=== PATIENT | female | born 1960 | race Caucasian/White ===

== ENCOUNTER 2018-11-08 08:35 | Inpatient (IN) | payer BC ==
[~2018-11-08 08:35] MED LIST: Acetaminophen 325 MG Tab PO SCH; Bisacodyl 5 MG Tab PO PRN; Lactated Ringers 1,000 ML IV SCH; Lidocaine 1%/Sod Bicarbonate in NS 8.4% 1 ML Syringe IDERM PRN; Morphine 2 MG/ML Syringe IVPUSH PRN; Naloxone 0.4 MG/ML SDV IVPUSH PRN; Ondansetron 4 MG/2 ML SDV IVPUSH PRN; Pregabalin 25 MG Cap PO SCH; Sodium Chloride 0.9% 10 ML Syringe FLUSH PRN; oxyCODONE ER 10 MG TAB.ER PO SCH
[2018-11-08] MEDS ORDERED: ceFAZolin 1 GM Vial ONE (08:56)
--- NOTE | 2018-11-08 08:56 | PCM.PREANE ---
Preanesthetic Assessment - Anesthesia/Transfusion/Family Hx Anesthesia History: Prior Anesthesia Without Reaction Family History of Anesthesia Reaction: No Transfusion History: No Prior Transfusion(s) - Review of Systems General: No Symptoms Pulmonary: No Symptoms Cardiovascular: Dyspnea on Exertion Gastrointestinal: No Symptoms Neurological: Tingling (fingers at time) Other: Reports: Diabetes - Physical Assessment NPO Status Date: 11/07/18 NPO Status Time: 00:00 Pulse: 77 ASA Class: 2 Mental Status: Alert & Oriented x3 Dentition: Reports: Partial, Hardin(s) Thyro-Mental Finger Breadths: 3 Mouth Opening Finger Breadths: 3 ROM/Head Extension: Full Lungs: Clear to Auscultation, Normal Respiratory Effort Cardiovascular: Regular Rate, Regular Rhythm - Lab Values: on chart - Imaging/EKG Impressions: on chart SR - Allergies Allergies/Adverse Reactions: Allergies Allergy/AdvReac Type Severity Reaction Status Date / Time No Known Allergies Allergy Verified 11/05/18 14:44 - Anesthesia Plan Pre-Op Medication Ordered: None - Acknowledgements Anesthesia Type Planned: Spinal, Regional Block (left adductor canal block for pos-op pain control) Pt an Appropriate Candidate for the Planned Anesthesia: Yes Alternatives and Risks of Anesthesia Discussed w Pt/Guardian: Yes Pt/Guardian Understands and Agrees with Anesthesia Plan: Yes PreAnesthesia Questionnaire HEENT History: Reports: Impaired Vision, Other (See Below) Other HEENT History: wears glasses, has partial Cardiovascular History: Reports: High Cholesterol Respiratory History: Reports: None Gastrointestinal History: Reports: None Genitourinary History: Reports: None 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 Musculoskeletal History: Reports: Osteoarthritis Neurological History: Reports: None Psychiatric History: Reports: None Endocrine/Metabolic History: Reports: Diabetes, Type II, Hypothyroidism Hematologic History: Reports: None Immunologic History: Reports: None Oncologic (Cancer) History: Reports: None Dermatologic History: Reports: None - Past Surgical History Head Surgeries/Procedures: Reports: None Cardiovascular Surgical History: Reports: None Respiratory Surgical History: Reports: None GI Surgical History: Reports: Cholecystectomy Female Surgical History: Reports: None Male Surgical History: Reports: None Endocrine Surgical History: Reports: None Neurological Surgical History: Reports: None Musculoskeletal Surgical History: Reports: Shoulder Surgery, Other (See Below) Other Musculoskeletal Surgeries/Procedures:: knee arthroscopy, decompression of medial nerve Oncologic Surgical History: Reports: None Dermatological Surgical History: Reports: None - SUBSTANCE USE Smoking Status *Q: Former Smoker Second Hand Smoke Exposure: No Recreational Drug Use History: No - HOME MEDS Home Medications: Home Meds Acetaminophen/Diphenhydramine [Tylenol Pm Ex-Strength Caplet] 2 tab PO BEDTIME PRN 11/05/18 [History] Aspirin [Halfprin] 81 mg PO DAILY 11/05/18 [History] Ca Carbonate/Vitamin D3/Vit K [Calcium + D Soft Chewable Tab] 1 tab PO DAILY [History] Cholecalciferol (Vitamin D3) [Vitamin D3] 5,000 unit PO DAILY 11/05/18 [History] Fish Oil/[place]-3 Fatty Acids [Fish Oil 1,000 MG] 1 gm PO BID 11/05/18 [History] Levothyroxine 150 mcg PO DAILY 11/05/18 [History] Multivitamin [Daily Multiple Vitamin] 1 tab PO DAILY 11/05/18 [History] Simvastatin [Zocor] 40 mg PO DAILY 11/05/18 [History] metFORMIN HCl [Metformin HCl ER] 500 mg PO DAILY 11/05/18 [History] - CURRENT (IN HOUSE) MEDS Current Meds: Current Medications Acetaminophen (Tylenol) 975 mg PO ONETIME JOB Stop: 11/08/18 15:00 Aspirin (Ecotrin) 325 mg PO BID JOB Bisacodyl (Dulcolax) 5 mg PO DAILY PRN PRN Reason: Constipation Cyclobenzaprine HCl (Flexeril) 10 mg PO TID PRN PRN Reason: Spasms Docusate Sodium (Colace) 100 mg PO BID JOB Famotidine (Pepcid) 20 mg PO Q12H JOB Lactated Ringer's (Ringers, Lactated) 1,000 mls @ 125 mls/hr IV ASDIRECTED JOB Stop: 11/08/18 23:00 Cefazolin Sodium/Dextrose 2 gm (/ Premix) 50 mls @ 100 mls/hr IV Q8H JOB Stop: 11/08/18 23:59 Ketorolac Tromethamine (Toradol) 15 mg IVPUSH Q6H PRN PRN Reason: Pain Lidocaine/Sodium Bicarbonate (Buffered Lidocaine 1% In Ns 8.4%) 0.25 ml IDERM ONETIME PRN PRN Reason: Prior to IV Start Stop: 11/08/18 18:00 Magnesium Hydroxide (Milk Of Magnesia) 30 ml PO BID PRN PRN Reason: Constipation Morphine Sulfate (Morphine) 2 mg IVPUSH Q2H PRN PRN Reason: Breakthrough Pain Naloxone HCl (Narcan) 0.1 mg IVPUSH Q5M PRN PRN Reason: Oversedation Ondansetron HCl (Zofran) 4 mg IVPUSH Q6H PRN PRN Reason: Nausea/Vomiting Oxycodone HCl (Oxycontin) 10 mg PO ONETIME JOB Stop: 11/08/18 15:00 Oxycodone/Acetaminophen (Percocet 325-5 Mg) 1 - 2 tab PO Q4H PRN PRN Reason: Pain Pregabalin (Lyrica) 50 mg PO ONETIME JOB Stop: 11/08/18 15:00 Senna (Senna) 8.6 mg PO BID PRN PRN Reason: Constipation Sodium Chloride (Saline Flush) 10 ml FLUSH ASDIRECTED PRN PRN Reason: Keep Vein Open Stop: 11/08/18 18:00 Discontinued Medications Morphine Sulfate 8 mg/Epinephrine HCl 0.3 mg/Cefuroxime Sodium 750 mg/Ketorolac Tromethamine 30 mg/Sodium Chloride 27.9 ml 0 mg .XX ONETIME ONE Stop: 11/08/18 07:22
[2018-11-08] MEDS ORDERED: Propofol 200 MG/20 ML SDV ONE ×3 (09:06→11:03)
[2018-11-08] MEDS ORDERED: fentaNYL 100 MCG/2 ML SDV ONE (09:06)
[2018-11-08] MEDS ORDERED: Ondansetron 4 MG/2 ML SDV ONE (09:06)
[2018-11-08] MEDS ORDERED: Midazolam 1 MG/ML 2 ML SDV ONE (09:07)
[2018-11-08] MEDS ORDERED: Ropivacaine 0.5% 5 MG/ML 30 ML SDV ONE (10:06)
[2018-11-08] MEDS ORDERED: EPINEPHrine 1 MG/ML SDV ONE (10:06)
[2018-11-08] MEDS ORDERED: ePHEDrine/Normal Saline 25 MG/5 ML Syringe ONE (10:15)
[2018-11-08] MEDS: Bupivacaine 0.25% 10 ML SDV ONE ×2 (10:46→11:20)
[2018-11-08] MEDS: Bupivacaine 0.25% 30 ML SDV ONE ×2 (10:47→11:05)
[2018-11-08] MEDS: ceFAZolin 1 GM Vial ONE ×2 (10:47→10:59)
[2018-11-08] MEDS: Morphine 8 MG, EPINEPHrine 0.3 MG, Cefuroxime 750 MG, Ketorolac 30 MG, Sodium Chloride ... ONE ×10 (10:48→11:04)
[2018-11-08] MEDS: Iodine/Sodium Iodide 2% Tincture 30 ML Bottle ONE ×2 (10:48→10:57)
[2018-11-08] MEDS: Triamcinolone Acetonide 40 MG/ML 1 ML MDV ONE ×2 (10:49→11:20)
[2018-11-08] MEDS: Vancomycin 1 GM SDV ONE ×2 (10:50→11:06)
[2018-11-08] MEDS ORDERED: diphenhydrAMINE 50 MG/ML SDV IVPUSH PRN (10:51)
[2018-11-08] MEDS ORDERED: Ondansetron 4 MG/2 ML SDV IVPUSH PRN (10:51)
--- NOTE | 2018-11-08 11:34 | PCM.OPNOTE ---
- General Post-Op/Procedure Note Date of Surgery/Procedure: 11/08/18 Operative Procedure(s): left total knee with right knee corticosteroid injection Pre Op Diagnosis: bilateral knee osteoarthritis Post-Op Diagnosis: Same Anesthesia Technique: Local, MAC, Spinal Primary Surgeon: Salas Lincoln Anesthesia Provider: Amina Turpin Warper Fixer: Tiffanie Tatum Warper Fixer: Cesia Nicolas Complications: None Condition: Good Free Text/Narrative:: size 4/4 9mm 32x10
--- NOTE | 2018-11-08 11:43 | PCM.POSTAN ---
POST ANESTHESIA ASSESSMENT - MENTAL STATUS Mental Status: Alert, Oriented - VITAL SIGNS Pulse Rate: 80 SaO2: 97 Resp Rate: 12 Blood Pressure: 102/65 Temperature: 97.1 C - RESPIRATORY Respiratory Status: Respiratory Rate WNL, Airway Patent, O2 Saturation Stable - CARDIOVASCULAR CV Status: Pulse Rate WNL, Blood Pressure Stable - PAIN Pain Score: 0 - POST OP HYDRATION Hydration Status: Adequate & Stable
--- NOTE | 2018-11-08 12:11 | PCM.SN ---
- Free Text/Narrative Note: Left selective femoral nerve block at the adductor canal for post-operative pain control Time Out: 1141 Start: 1141 End: 1200 Chart reviewed. Consent signed. Questions answered. Appropriate monitors applied. Time out performed. Left mid-shaft femur identified via ultrasound. Scanning medially of left femur, identification of the femoral artery, femoral vein, and nerve bundles noted within the adductor canal. The skin was prepped lateral to the ultrasound probe with chlorahexadine times two. The 21ga 4 insulated block needle was inserted under direct ultrasound guidance into the adductor canal. 25mL of 0.5% ropivacaine with 1:200,000 epinephrine was injected cirmcumferentially around the nerve with intermittent negative aspiration noted every 5mLs. Procedure performed under aseptic technique with sterile probe cover, sterile gloves, and mask noted. Patient tolerated the procedure well. See pictures on progress note and vital signs on nurses notes. Block completed postoperatively. Vince Crump CRNA
--- NOTE | 2018-11-08 12:39 | CR ---
Left knee: AP and lateral views of the left knee were obtained. Comparison: No prior knee exam. Knee prosthesis is seen. Components are aligned. Soft tissue air is noted from the surgical procedure. Impression: 1. Satisfactory postoperative radiographic appearance of recently placed left knee prosthesis. Diagnostic code #2
[2018-11-08] MEDS: Acetaminophen/oxyCODONE 325-5 MG Tab PO PRN ×2 (14:34→18:44)
[2018-11-08] MEDS ORDERED: Cyclobenzaprine 10 MG Tab PO PRN (15:00)
--- NOTE | 2018-11-08 16:36 | PCM.CONS ---
H&P History of Present Illness - General Date of Service: 11/08/18 Admit Problem/Dx: Admission Diagnosis/Problem Admission Diagnosis/Problem Osteoarthritis of knee Source of Information: Patient, Old Records, Provider, RN, RN Notes Reviewed History Limitations: Reports: No Limitations - History of Present Illness Initial Comments - Free Text/Narative: Nallely Rose is a 57 yo female patient of Dr. Lincoln who is post-operative day 0 of left TKA and right knee cortisone injection. Hospital medicine was consulted for post-operative medical care of the following listed medical conditions. At this time she is resting comfortably in bed Pain is controlled. She denies any chest pain, shortness of breath, palpitations, nausea, or vomiting. She carries a history of: Impaired vision, HLD, Osteoarthritis, Type II DM, Hypothyroidism. . She is a full code. Her primary care provider is Eden Fung PA-C. Left Knee Pain Score (Numeric/FACES): 4 - Related Data Allergies/Adverse Reactions: Allergies Allergy/AdvReac Type Severity Reaction Status Date / Time No Known Allergies Allergy Verified 11/08/18 13:00 Home Medications: Home Meds Acetaminophen/Diphenhydramine [Tylenol Pm Ex-Strength Caplet] 2 tab PO BEDTIME PRN 11/05/18 [History] Aspirin [Halfprin] 81 mg PO DAILY 11/05/18 [History] Ca Carbonate/Vitamin D3/Vit K [Calcium + D Soft Chewable Tab] 1 tab PO DAILY [History] Cholecalciferol (Vitamin D3) [Vitamin D3] 5,000 unit PO DAILY 11/05/18 [History] Fish Oil/[place]-3 Fatty Acids [Fish Oil 1,000 MG] 1 gm PO BID 11/05/18 [History] Levothyroxine 150 mcg PO DAILY 11/05/18 [History] Multivitamin [Daily Multiple Vitamin] 1 tab PO DAILY 11/05/18 [History] Simvastatin [Zocor] 40 mg PO DAILY 11/05/18 [History] metFORMIN HCl [Metformin HCl ER] 500 mg PO DAILY 11/05/18 [History] Past Medical History HEENT History: Reports: Impaired Vision, Other (See Below) Other HEENT History: wears glasses, has partial Cardiovascular History: Reports: High Cholesterol Respiratory History: Reports: None Gastrointestinal History: Reports: None Genitourinary History: Reports: None 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 Musculoskeletal History: Reports: Osteoarthritis Neurological History: Reports: None Psychiatric History: Reports: None Endocrine/Metabolic History: Reports: Diabetes, Type II, Hypothyroidism Hematologic History: Reports: None Immunologic History: Reports: None Oncologic (Cancer) History: Reports: None Dermatologic History: Reports: None - Infectious Disease History Infectious Disease History: Reports: None - Past Surgical History Head Surgeries/Procedures: Reports: None Cardiovascular Surgical History: Reports: None Respiratory Surgical History: Reports: None GI Surgical History: Reports: Cholecystectomy Female Surgical History: Reports: None Male Surgical History: Reports: None Endocrine Surgical History: Reports: None Neurological Surgical History: Reports: None Musculoskeletal Surgical History: Reports: Shoulder Surgery, Other (See Below) Other Musculoskeletal Surgeries/Procedures:: knee arthroscopy, decompression of medial nerve Oncologic Surgical History: Reports: None Dermatological Surgical History: Reports: None Social & Family History - Family History Family Medical History: Noncontributory - Tobacco Use Smoking Status *Q: Former Smoker Years of Tobacco use: 40 Used Tobacco, but Quit: Yes Month/Year Tobacco Last Used: May 2016 Second Hand Smoke Exposure: No - Caffeine Use Caffeine Use: Reports: Coffee Other Caffeine Use: 1 pot of coffee a day. - Recreational Drug Use Recreational Drug Use: No H&P Review of Systems - Review of Systems: Review Of Systems: See Below General: Reports: No Symptoms. Denies: Fever, Chills HEENT: Reports: No Symptoms. Denies: Headaches, Sore Throat Pulmonary: Reports: No Symptoms. Denies: Shortness of Breath, Wheezing, Pleuritic Chest Pain, Cough, Sputum Cardiovascular: Reports: No Symptoms. Denies: Chest Pain, Palpitations, Dyspnea on Exertion Gastrointestinal: Reports: No Symptoms. Denies: Abdominal Pain, Constipation, Diarrhea, Nausea, Vomiting Genitourinary: Reports: No Symptoms. Denies: Pain Musculoskeletal: Reports: Leg Pain Skin: Reports: No Symptoms Psychiatric: Reports: No Symptoms. Denies: Confusion Neurological: Reports: No Symptoms. Denies: Pre-Existing Deficit Hematologic/Lymphatic: Reports: No Symptoms Immunologic: Reports: No Symptoms Exam - Exam Exam: See Below - Vital Signs Vital Signs: Last Vital Signs Temp 97.2 F 11/08/18 12:15 Pulse 55 L 11/08/18 11:45 Resp 13 11/08/18 12:15 BP 129/82 11/08/18 12:15 Pulse Ox 98 11/08/18 12:15 Weight: 176 lb - Exam Quality Assessment: DVT Prophylaxis. No: Supplemental Oxygen, Urinary Catheter General: Alert, Oriented, Cooperative. No: Mild Distress HEENT: Conjunctiva Clear, EACs Clear, EOMI, Hearing Intact, Mucosa Moist & [place] , Nares Patent, Posterior Pharynx Clear, PERRLA Neck: Supple, Trachea Midline Lungs: Clear to Auscultation, Normal Respiratory Effort Cardiovascular: Regular Rate, Regular Rhythm GI/Abdominal Exam: Normal Bowel Sounds, Soft, Non-Tender, No Distention, No Abnormal Bruit (Female) Exam: Deferred Rectal (Female) Exam: Deferred Back Exam: Normal Inspection, Full Range of Motion Extremities: No Pedal Edema, Normal Capillary Refill, Leg Pain, Limited Range of Motion, Other (Bandage in place on left leg. Bandage is dry and intact. Cooling pack in place. ) Peripheral Pulses: 2+: Radial (L), Radial (R), Dorsalis Pedis (L), Dorsalis Pedis (R) Skin: Warm, Dry, Intact Neurological: Cranial Nerves Intact (Grossly) Neuro Extensive - Mental Status: Alert, Oriented x3 - Patient Data Lab Results Last 24 hrs: Laboratory Results - last 24 hr 11/08/18 Range/Units 09:05 POC Glucose 117 H (70-105) mg/dL Consult PN Assessment/Plan POD#: 0 (1) S/P total knee arthroplasty SNOMED Code(s): 0654987372908, 642830687, 6622330640861 Code(s): Z96.659 - PRESENCE OF UNSPECIFIED ARTIFICIAL KNEE JOINT Priority: High Current Visit: Yes Qualifiers: Laterality: left Qualified Code(s): Z96.652 - Presence of left artificial knee joint (2) Osteoarthritis SNOMED Code(s): 542593741 Code(s): M19.90 - UNSPECIFIED OSTEOARTHRITIS, UNSPECIFIED SITE Priority: High Current Visit: Yes Qualifiers: Osteoarthritis location: knee Osteoarthritis type: primary Laterality: bilateral Qualified Code(s): M17.0 - Bilateral primary osteoarthritis of knee (3) HLD (hyperlipidemia) SNOMED Code(s): 12212400 Code(s): E78.5 - HYPERLIPIDEMIA, UNSPECIFIED Priority: Low Current Visit : No Qualifiers: Hyperlipidemia type: unspecified Qualified Code(s): E78.5 - Hyperlipidemia , unspecified (4) Type II diabetes mellitus SNOMED Code(s): 72468672 Code(s): E11.9 - TYPE 2 DIABETES MELLITUS WITHOUT COMPLICATIONS Priority: Medium Current Visit: No Qualifiers: Diabetes mellitus long term care pharmacist insulin use: without long term care pharmacist use Diabetes mellitus complication status: without complication Qualified Code(s): E11.9 - Type 2 diabetes mellitus without complications (5) Hypothyroidism SNOMED Code(s): 14272944 Code(s): E03.9 - HYPOTHYROIDISM, UNSPECIFIED Priority: Low Current Visit : No Qualifiers: Hypothyroidism type: unspecified Qualified Code(s): E03.9 - Hypothyroidism , unspecified Problem List Initiated/Reviewed/Updated: Yes Plan: I/P: Acute: S/P left total knee arthroplasty - post-operative day 0 -DVT prophylaxis and pain management per primary care team -PT/OT -IS/RT -Monitor oxygen saturation -Titrate oxygen as needed -Home medications reviewed -Vital signs stable -Monitor labs -Pre-operative Hgb was 13.8 -Pre-operative GFR was 88 Osteoarthritis of bilateral knees -Pain management per primary care team S/P right knee cortisone injection -Management by primary team Chronic: Impaired vision HLD Type II DM Hypothyroidism Plan: CM for discharge planning GI prophylaxis Home medications as indicated Other orders as listed above Routine AM labs She is a full code. Her PCP is Eden Fung PA-C Thank you for allowing us to participate in the care of this patient!! Requesting Provider: Dr. Lincoln Date Consult Requested: 11/08/18 Patient History Reviewed: Yes Admission H&P Reviewed: Yes Time Spent (in minutes): 35
[2018-11-08] MEDS ORDERED: Ketorolac 15 MG/ML SDV IVPUSH PRN (18:00)
[2018-11-08] MEDS: ceFAZolin 2 GM in Premix Bag 1 BAG IV SCH (18:44)
[2018-11-08] MEDS: Insulin Lispro 100 Units/ML 3 ML Vial SUBCUT SCH ×2 (18:45→21:30)
[2018-11-08] MEDS ORDERED: Sennosides 8.6 MG Tab PO PRN (21:00)
[2018-11-08] MEDS ORDERED: Magnesium Hydroxide 400 MG/5 ML Susp 30 ML Cup PO PRN (21:00)
[2018-11-08] MEDS: Famotidine 20 MG Tab PO SCH (21:29)
[2018-11-08] MEDS: Docusate Sodium 100 MG Cap PO SCH (21:29)
[2018-11-09] MEDS: Acetaminophen/oxyCODONE 325-5 MG Tab PO PRN ×3 (00:42→11:22)
[2018-11-09] MEDS: ceFAZolin 2 GM in Premix Bag 1 BAG IV SCH ×2 (01:01→09:33)
[2018-11-09] MEDS ORDERED: Levothyroxine 150 MCG Tab PO SCH (06:00)
[2018-11-09] MEDS: Insulin Lispro 100 Units/ML 3 ML Vial SUBCUT SCH ×2 (06:05→13:03)
--- NOTE | 2018-11-09 08:17 | PCM.SURGPN ---
- General Info Date of Service: 11/09/18 POD#: 1 Functional Status: Reports: Pain Controlled, Tolerating Diet, Ambulating, Urinating, Incentive Spirometry - Review of Systems Musculoskeletal: Reports: Other (The pt has progressed well with therapies.) - Patient Data Vitals - Most Recent: Last Vital Signs Temp 99.1 F 11/09/18 07:33 Pulse 85 11/09/18 07:33 Resp 16 11/09/18 07:33 BP 103/71 11/09/18 07:33 Pulse Ox 94 L 11/09/18 07:33 Weight - Most Recent: 186 lb I&O - Last 24 Hours: Intake & Output 11/08/18 11/09/18 11/09/18 22:59 06:59 14:59 Intake Total 1400 1650 Output Total 200 2200 Balance 1200 -550 Lab Results Last 24 Hrs: Laboratory Results - last 24 hr 11/08/18 11/08/18 11/09/18 Range/Units 09:05 21:28 05:25 WBC 8.02 (3.98-10.04) K/mm3 RBC 3.72 L (3.98-5.22) M/mm3 Hgb 11.0 L (11.2-15.7) gm/L Hct 35.1 (34.1-44.9) % MCV 94.4 (79.4-94.8) fl MCH 29.6 (25.6-32.2) pg MCHC 31.3 L (32.2-35.5) g/dl RDW Std Deviation 48.6 H (36.4-46.3) fL Plt Count 233 (182-369) K/mm3 MPV 10.1 (9.4-12.3) fl Sodium (136-145) mEq/L Potassium (3.5-5.1) mEq/L Chloride (98-107) mEq/L Carbon Dioxide (21-32) mEq/L Anion Gap (5-15) BUN (7-18) mg/dL Creatinine (0.55-1.02) mg/dL Est Cr Clr Drug Dosing mL/min Estimated GFR (MDRD) (>60) mL/min BUN/Creatinine Ratio (14-18) Glucose (74-106) mg/dL POC Glucose 117 H 116 H (70-105) mg/dL Calcium (8.5-10.1) mg/dL Total Bilirubin (0.2-1.0) mg/dL AST (15-37) U/L ALT (14-59) U/L Alkaline Phosphatase (46-116) U/L Total Protein (6.4-8.2) g/dl Albumin (3.4-5.0) g/dl Globulin gm/dL Albumin/Globulin Ratio (1-2) 11/09/18 11/09/18 Range/Units 05:25 06:03 WBC (3.98-10.04) K/mm3 RBC (3.98-5.22) M/mm3 Hgb (11.2-15.7) gm/L Hct (34.1-44.9) % MCV (79.4-94.8) fl MCH (25.6-32.2) pg MCHC (32.2-35.5) g/dl RDW Std Deviation (36.4-46.3) fL Plt Count (182-369) K/mm3 MPV (9.4-12.3) fl Sodium 137 (136-145) mEq/L Potassium 4.6 (3.5-5.1) mEq/L Chloride 103 (98-107) mEq/L Carbon Dioxide 27 (21-32) mEq/L Anion Gap 11.6 (5-15) BUN 18 (7-18) mg/dL Creatinine 1.0 (0.55-1.02) mg/dL Est Cr Clr Drug Dosing 50.73 mL/min Estimated GFR (MDRD) 57 (>60) mL/min BUN/Creatinine Ratio 18.0 (14-18) Glucose 121 H (74-106) mg/dL POC Glucose 125 H (70-105) mg/dL Calcium 8.7 (8.5-10.1) mg/dL Total Bilirubin 0.3 (0.2-1.0) mg/dL AST 24 (15-37) U/L ALT 33 (14-59) U/L Alkaline Phosphatase 77 (46-116) U/L Total Protein 6.6 (6.4-8.2) g/dl Albumin 3.1 L (3.4-5.0) g/dl Globulin 3.5 gm/dL Albumin/Globulin Ratio 0.9 L (1-2) Med Orders - Current: Current Medications Aspirin (Ecotrin) 325 mg PO BID [facility] Bisacodyl (Dulcolax) 5 mg PO DAILY PRN PRN Reason: Constipation Cholecalciferol (Vitamin D3) 5,000 unit PO DAILY [facility] Cyclobenzaprine HCl (Flexeril) 10 mg PO TID PRN PRN Reason: Spasms Docusate Sodium (Colace) 100 mg PO BID [facility] Last Admin: 11/08/18 21:29 Dose: 100 mg Famotidine (Pepcid) 20 mg PO Q12H [facility] Last Admin: 11/08/18 21:29 Dose: 20 mg Cefazolin Sodium/Dextrose 2 gm (/ Premix) 50 mls @ 100 mls/hr IV Q8H [facility] Stop: 11/09/18 10:29 Last Admin: 11/09/18 01:01 Dose: 100 mls/hr Insulin Human Lispro (Humalog) 0 unit SUBCUT QIDACANDBED [facility]; Protocol Last Admin: 11/09/18 06:05 Dose: Not Given Ketorolac Tromethamine (Toradol) 15 mg IVPUSH Q6H PRN PRN Reason: Pain Last Admin: 11/09/18 00:41 Dose: 15 mg Levothyroxine Sodium (Levothyroxine) 150 mcg PO 0600 [facility] Last Admin: 11/09/18 05:59 Dose: 150 mcg Magnesium Hydroxide (Milk Of Magnesia) 30 ml PO BID PRN PRN Reason: Constipation Morphine Sulfate (Morphine) 2 mg IVPUSH Q2H PRN PRN Reason: Breakthrough Pain Multivitamins (Thera) 1 each PO DAILY [facility] Naloxone HCl (Narcan) 0.1 mg IVPUSH Q5M PRN PRN Reason: Oversedation Ondansetron HCl (Zofran) 4 mg IVPUSH Q6H PRN PRN Reason: Nausea/Vomiting Oxycodone/Acetaminophen (Percocet 325-5 Mg) 1 - 2 tab PO Q4H PRN PRN Reason: Pain Last Admin: 11/09/18 05:59 Dose: 2 tab Senna (Senna) 8.6 mg PO BID PRN PRN Reason: Constipation Discontinued Medications Acetaminophen (Tylenol) 975 mg PO ONETIME [facility] Stop: 11/08/18 15:00 Last Admin: 11/08/18 08:52 Dose: 975 mg Bupivacaine HCl (Sensorcaine-Mpf 0.25%) Confirm Administered Dose 10 ml .ROUTE .STK-MED ONE Stop: 11/08/18 08:57 Last Admin: 11/08/18 10:46 Dose: 4 ml Bupivacaine HCl (Marcaine 0.25%) Confirm Administered Dose 30 ml .ROUTE .STK- MED ONE Stop: 11/08/18 08:57 Last Admin: 11/08/18 10:47 Dose: 30 ml Cefazolin Sodium (Ancef) Confirm Administered Dose 2 gm .ROUTE .STK-MED ONE Stop: 11/08/18 08:57 Cefazolin Sodium (Ancef) Confirm Administered Dose 2 gm .ROUTE .STK-MED ONE Stop: 11/08/18 09:08 Last Admin: 11/08/18 10:47 Dose: 2 gm Morphine Sulfate 8 mg/Epinephrine HCl 0.3 mg/Cefuroxime Sodium 750 mg/Ketorolac Tromethamine 30 mg/Sodium Chloride 27.9 ml 0 mg .XX ONETIME ONE Stop: 11/08/18 07:22 Last Admin: 11/08/18 10:48 Dose: 788.3 mg Diphenhydramine HCl (Benadryl) 25 mg IVPUSH Q6H PRN PRN Reason: pruritis Stop: 11/08/18 20:00 Ephedrine Sulfate (Ephedrine In Ns) Confirm Administered Dose 25 mg .ROUTE .STK- MED ONE Stop: 11/08/18 10:16 Epinephrine HCl (Adrenalin) Confirm Administered Dose 1 mg .ROUTE .STK-MED ONE Stop: 11/08/18 10:07 Fentanyl (Sublimaze) Confirm Administered Dose 100 mcg .ROUTE .STK-MED ONE Stop: 11/08/18 09:07 Lactated Ringer's (Ringers, Lactated) 1,000 mls @ 125 mls/hr IV ASDIRECTED [facility] Stop: 11/08/18 23:00 Last Admin: 11/08/18 09:10 Dose: 125 mls/hr Iodine (Iodine 2% Mild Tincture) Confirm Administered Dose 30 ml .ROUTE .STK- MED ONE Stop: 11/08/18 08:57 Last Admin: 11/08/18 10:48 Dose: 18 ml Lidocaine/Sodium Bicarbonate (Buffered Lidocaine 1% In Ns 8.4%) 0.25 ml IDERM ONETIME PRN PRN Reason: Prior to IV Start Stop: 11/08/18 18:00 Last Admin: 11/08/18 09:10 Dose: 0.25 ml Metformin HCl (Glucophage) 250 mg PO BID [facility] Midazolam HCl (Versed 1 Mg/Ml) Confirm Administered Dose 2 mg .ROUTE .STK-MED ONE Stop: 11/08/18 09:08 Ondansetron HCl (Zofran) Confirm Administered Dose 4 mg .ROUTE .STK-MED ONE Stop: 11/08/18 09:07 Ondansetron HCl (Zofran) 4 mg IVPUSH ONETIME PRN PRN Reason: Nausea/Vomiting Stop: 11/08/18 20:00 Oxycodone HCl (Oxycontin) 10 mg PO ONETIME [facility] Stop: 11/08/18 15:00 Last Admin: 11/08/18 08:51 Dose: 10 mg Pregabalin (Lyrica) 50 mg PO ONETIME [facility] Stop: 11/08/18 15:00 Last Admin: 11/08/18 08:51 Dose: 50 mg Propofol (Diprivan 20 Ml) Confirm Administered Dose 200 mg .ROUTE .STK-MED ONE Stop: 11/08/18 09:07 Propofol (Diprivan 20 Ml) Confirm Administered Dose 200 mg .ROUTE .STK-MED ONE Stop: 11/08/18 10:23 Propofol (Diprivan 20 Ml) Confirm Administered Dose 200 mg .ROUTE .STK-MED ONE Stop: 11/08/18 11:04 Ropivacaine (Naropin 0.5%) Confirm Administered Dose 30 ml .ROUTE .STK-MED ONE Stop: 11/08/18 10:07 Simvastatin (Zocor) 40 mg PO DAILY [facility] Sodium Chloride (Saline Flush) 10 ml FLUSH ASDIRECTED PRN PRN Reason: Keep Vein Open Stop: 11/08/18 18:00 Tranexamic Acid (Cyklokapron) Confirm Administered Dose 1,000 mg .ROUTE .STK- MED ONE Stop: 11/08/18 08:57 Last Admin: 11/08/18 10:49 Dose: 1,000 mg Triamcinolone Acetonide (Kenalog-40) Confirm Administered Dose 80 mg .ROUTE .STK -MED ONE Stop: 11/08/18 08:57 Last Admin: 11/08/18 10:49 Dose: 80 mg Vancomycin HCl (Vancomycin) Confirm Administered Dose 1 gm .ROUTE .STK-MED ONE Stop: 11/08/18 08:57 Last Admin: 11/08/18 10:50 Dose: 1 gm - Exam Wound/Incisions: Dressing Dry and Intact General: Alert, Cooperative, No Acute Distress Lungs: Normal Respiratory Effort Extremities: Other (NVS intact for LLE. Becca's negative.) - Problem List Review Problem List Initiated/Reviewed/Updated: Yes - My Orders Last 24 Hours: Active Orders 24 hr Category Date Time Status Patient Status [ADT] Routine ADT 11/08/18 07:22 Active Antiembolic Devices [RC] Care 11/08/18 07:22 Active Blood Glucose Check, Bedside [RC] QIDACANDBED Care 11/08/18 16:51 Active Notify Provider [RC] Care 11/08/18 10:51 Active RT Incentive Spirometry [RC] Q1HWA Care 11/08/18 07:21 Active Ready for Discharge [RC] PER UNIT ROUTINE Care 11/09/18 08:15 Ordered Vital Signs [RC] Q4HR Care 11/08/18 07:22 Active Consult to Physician [CONS] Routine Cons 11/08/18 07:22 Active OT Evaluation and Treatment [CONS] Routine Cons 11/08/18 07:21 Active PT Evaluation and Treatment [CONS] Routine Cons 11/08/18 07:21 Active [employer] Diet [DIET] Diet 11/08/18 Lunch Active Acetaminophen/oxyCODONE [Percocet 325-5 MG] Med 11/08/18 07:21 Active 1 - 2 tab PO Q4H PRN Aspirin [Ecotrin] Med 11/09/18 09:00 Active 325 mg PO BID Bisacodyl [Dulcolax] Med 11/08/18 07:22 Active 5 mg PO DAILY PRN Cholecalciferol (Vitamin D3) [Vitamin D3] Med 11/09/18 09:00 Active 5,000 unit PO DAILY Cyclobenzaprine [Flexeril] Med 11/08/18 15:00 Active 10 mg PO TID PRN Docusate Sodium [Colace] Med 11/08/18 21:00 Active 100 mg PO BID Famotidine [Pepcid] Med 11/08/18 21:00 Active 20 mg PO Q12H Insulin Lispro [HumaLOG] Med 11/08/18 17:00 Active See Protocol SUBCUT QIDACANDBED Ketorolac [Toradol] Med 11/08/18 18:00 Active 15 mg IVPUSH Q6H PRN Levothyroxine Med 11/09/18 06:00 Active 150 mcg PO 0600 Magnesium Hydroxide [Milk of Magnesia] Med 11/08/18 21:00 Active 30 ml PO BID PRN Morphine Med 11/08/18 07:22 Active 2 mg IVPUSH Q2H PRN Multivitamins,Therapeutic [Thera] Med 11/09/18 09:00 Active 1 each PO DAILY Naloxone [Narcan] Med 11/08/18 07:22 Active 0.1 mg IVPUSH Q5M PRN Ondansetron [Zofran] Med 11/08/18 07:22 Active 4 mg IVPUSH Q6H PRN Sennosides [Senna] Med 11/08/18 21:00 Active 8.6 mg PO BID PRN ceFAZolin [Ancef] 2 gm Med 11/08/18 18:00 Active Premix Bag 1 bag IV Q8H Antiembolic Hose [OM.PC] Per Unit Routine Oth 11/08/18 07:23 Ordered Ice Therapy [OM.PC] Per Unit Routine Oth 11/08/18 07:23 Ordered Sequential Compression Device [OM.PC] Per Unit Routine Oth 11/08/18 07:21 Ordered Resuscitation Status Routine Resus Stat 11/08/18 07:22 Ordered Medication Orders Aspirin (Ecotrin) 325 mg PO BID [facility] Bisacodyl (Dulcolax) 5 mg PO DAILY PRN PRN Reason: Constipation Cholecalciferol (Vitamin D3) 5,000 unit PO DAILY [facility] Cyclobenzaprine HCl (Flexeril) 10 mg PO TID PRN PRN Reason: Spasms Docusate Sodium (Colace) 100 mg PO BID [facility] Last Admin: 11/08/18 21:29 Dose: 100 mg Famotidine (Pepcid) 20 mg PO Q12H [facility] Last Admin: 11/08/18 21:29 Dose: 20 mg Cefazolin Sodium/Dextrose 2 gm (/ Premix) 50 mls @ 100 mls/hr IV Q8H [facility] Stop: 11/09/18 10:29 Last Admin: 11/09/18 01:01 Dose: 100 mls/hr Infusion: 11/08/18 19:14 Dose: 100 mls/hr Admin: 11/08/18 18:44 Dose: 100 mls/hr Insulin Human Lispro (Humalog) 0 unit SUBCUT QIDACANDBED [facility]; Protocol Last Admin: 11/09/18 06:05 Dose: Admin: 11/08/18 21:30 Dose: Admin: 11/08/18 18:45 Dose: Not Given Ketorolac Tromethamine (Toradol) 15 mg IVPUSH Q6H PRN PRN Reason: Pain Last Admin: 11/09/18 00:41 Dose: 15 mg Levothyroxine Sodium (Levothyroxine) 150 mcg PO 0600 [facility] Last Admin: 11/09/18 05:59 Dose: 150 mcg Magnesium Hydroxide (Milk Of Magnesia) 30 ml PO BID PRN PRN Reason: Constipation Morphine Sulfate (Morphine) 2 mg IVPUSH Q2H PRN PRN Reason: Breakthrough Pain Multivitamins (Thera) 1 each PO DAILY [facility] Naloxone HCl (Narcan) 0.1 mg IVPUSH Q5M PRN PRN Reason: Oversedation Ondansetron HCl (Zofran) 4 mg IVPUSH Q6H PRN PRN Reason: Nausea/Vomiting Oxycodone/Acetaminophen (Percocet 325-5 Mg) 1 - 2 tab PO Q4H PRN PRN Reason: Pain Last Admin: 11/09/18 05:59 Dose: 2 tab Admin: 11/09/18 00:42 Dose: 2 tab Admin: 11/08/18 18:44 Dose: 2 tab Admin: 11/08/18 14:34 Dose: 2 tab Senna (Senna) 8.6 mg PO BID PRN PRN Reason: Constipation - Assessment Assessment (Free Text/Narrative):: POD#1 - left TKA with right knee cortisone injection - Plan Plan (Free Text/Narrative):: 1. Hgb 11.0. 2. Discharge to home today. 3. Outpatient therapy. 4. 325mg ASA PO BID, frequent mobility, TEDs. The pt's case was discussed with Dr. Lincoln.
[2018-11-09] MEDS ORDERED: Aspirin 325 MG Tab.EC PO SCH (09:00)
[2018-11-09] MEDS ORDERED: Multivitamins,Therapeutic Tab PO SCH (09:00)
[2018-11-09] MEDS ORDERED: Simvastatin 40 MG Tab PO SCH (09:00)
[2018-11-09] MEDS ORDERED: metFORMIN 500 MG Tab PO SCH (09:00)
[2018-11-09] MEDS ORDERED: Cholecalciferol (Vitamin D3) 5,000 UNIT Tab PO SCH (09:00)
[2018-11-09] MEDS: Docusate Sodium 100 MG Cap PO SCH (09:32)
[2018-11-09] MEDS: Famotidine 20 MG Tab PO SCH (09:32)
--- NOTE | 2018-11-09 10:59 | PCM48HPAN ---
Post Anesthesia Note - EVALUATION WITHIN 48HRS OF ANESTHETIC Vital Signs in Normal Range: Yes Patient Participated in Evaluation: Yes Respiratory Function Stable: Yes Airway Patent: Yes Cardiovascular Function Stable: Yes Hydration Status Stable: Yes Pain Control Satisfactory: Yes Nausea and Vomiting Control Satisfactory: Yes Mental Status Recovered: Yes
--- NOTE | 2018-11-09 15:48 | PCM.CONSN ---
- General Info Date of Service: 11/09/18 Admission Dx/Problem (Free Text): Admission Diagnosis/Problem Admission Diagnosis/Problem Osteoarthritis of knee Subjective Update: Nallely Rose is a 57 yo female patient of Dr. Lincoln who is post-operative day 1 of left TKA and right knee cortisone injection. Hospital medicine was consulted for post-operative medical care of the following listed medical conditions. At this time she is resting comfortably in bed Pain is controlled. She denies any chest pain, shortness of breath, palpitations, nausea, or vomiting. She carries a history of: Impaired vision, HLD, Osteoarthritis, Type II DM, Hypothyroidism. . Patient had an uneventful night. No fever, chills, shortness of breath, chest pain, or dyspnea. She is a full code. Her primary care provider is Eden Fung PA-C. - Review of Systems General: Reports: No Symptoms HEENT: Reports: No Symptoms Pulmonary: Reports: No Symptoms. Denies: Shortness of Breath, Cough Cardiovascular: Reports: No Symptoms. Denies: Chest Pain Gastrointestinal: Reports: No Symptoms Genitourinary: Reports: No Symptoms. Denies: Dysuria Neurological: Reports: No Symptoms - Patient Data Vitals - Most Recent: Last Vital Signs Temp 99.0 F 11/09/18 11:20 Pulse 87 11/09/18 11:20 Resp 16 11/09/18 11:20 BP 121/84 11/09/18 11:20 Pulse Ox 94 L 11/09/18 11:20 Weight - Most Recent: 186 lb I&O - Last 24 Hours: Intake & Output 11/09/18 11/09/18 11/09/18 06:59 14:59 22:59 Intake Total 1650 120 Output Total 2200 Balance -550 120 Lab Results Last 24 Hours: Laboratory Results - last 24 hr 11/08/18 11/09/18 11/09/18 Range/Units 21:28 05:25 05:25 WBC 8.02 (3.98-10.04) K/mm3 RBC 3.72 L (3.98-5.22) M/mm3 Hgb 11.0 L (11.2-15.7) gm/L Hct 35.1 (34.1-44.9) % MCV 94.4 (79.4-94.8) fl MCH 29.6 (25.6-32.2) pg MCHC 31.3 L (32.2-35.5) g/dl RDW Std Deviation 48.6 H (36.4-46.3) fL Plt Count 233 (182-369) K/mm3 MPV 10.1 (9.4-12.3) fl Sodium 137 (136-145) mEq/L Potassium 4.6 (3.5-5.1) mEq/L Chloride 103 (98-107) mEq/L Carbon Dioxide 27 (21-32) mEq/L Anion Gap 11.6 (5-15) BUN 18 (7-18) mg/dL Creatinine 1.0 (0.55-1.02) mg/dL Est Cr Clr Drug Dosing 50.73 mL/min Estimated GFR (MDRD) 57 (>60) mL/min BUN/Creatinine Ratio 18.0 (14-18) Glucose 121 H (74-106) mg/dL POC Glucose 116 H (70-105) mg/dL Calcium 8.7 (8.5-10.1) mg/dL Total Bilirubin 0.3 (0.2-1.0) mg/dL AST 24 (15-37) U/L ALT 33 (14-59) U/L Alkaline Phosphatase 77 (46-116) U/L Total Protein 6.6 (6.4-8.2) g/dl Albumin 3.1 L (3.4-5.0) g/dl Globulin 3.5 gm/dL Albumin/Globulin Ratio 0.9 L (1-2) 11/09/18 11/09/18 Range/Units 06:03 11:27 WBC (3.98-10.04) K/mm3 RBC (3.98-5.22) M/mm3 Hgb (11.2-15.7) gm/L Hct (34.1-44.9) % MCV (79.4-94.8) fl MCH (25.6-32.2) pg MCHC (32.2-35.5) g/dl RDW Std Deviation (36.4-46.3) fL Plt Count (182-369) K/mm3 MPV (9.4-12.3) fl Sodium (136-145) mEq/L Potassium (3.5-5.1) mEq/L Chloride (98-107) mEq/L Carbon Dioxide (21-32) mEq/L Anion Gap (5-15) BUN (7-18) mg/dL Creatinine (0.55-1.02) mg/dL Est Cr Clr Drug Dosing mL/min Estimated GFR (MDRD) (>60) mL/min BUN/Creatinine Ratio (14-18) Glucose (74-106) mg/dL POC Glucose 125 H 107 H (70-105) mg/dL Calcium (8.5-10.1) mg/dL Total Bilirubin (0.2-1.0) mg/dL AST (15-37) U/L ALT (14-59) U/L Alkaline Phosphatase (46-116) U/L Total Protein (6.4-8.2) g/dl Albumin (3.4-5.0) g/dl Globulin gm/dL Albumin/Globulin Ratio (1-2) Med Orders - Current: Current Medications Discontinued Medications Acetaminophen (Tylenol) 975 mg PO ONETIME [facility] Stop: 11/08/18 15:00 Last Admin: 11/08/18 08:52 Dose: 975 mg Aspirin (Ecotrin) 325 mg PO BID [facility] Last Admin: 11/09/18 09:32 Dose: 325 mg Bisacodyl (Dulcolax) 5 mg PO DAILY PRN PRN Reason: Constipation Bupivacaine HCl (Sensorcaine-Mpf 0.25%) Confirm Administered Dose 10 ml .ROUTE .STK-MED ONE Stop: 11/08/18 08:57 Last Admin: 11/08/18 11:20 Dose: 4 ml Bupivacaine HCl (Marcaine 0.25%) Confirm Administered Dose 30 ml .ROUTE .STK- MED ONE Stop: 11/08/18 08:57 Last Admin: 11/08/18 11:05 Dose: 30 ml Cefazolin Sodium (Ancef) Confirm Administered Dose 2 gm .ROUTE .STK-MED ONE Stop: 11/08/18 08:57 Cefazolin Sodium (Ancef) Confirm Administered Dose 2 gm .ROUTE .STK-MED ONE Stop: 11/08/18 09:08 Last Admin: 11/08/18 10:59 Dose: 2 gm Cholecalciferol (Vitamin D3) 5,000 unit PO DAILY [facility] Last Admin: 11/09/18 09:33 Dose: 5,000 unit Morphine Sulfate 8 mg/Epinephrine HCl 0.3 mg/Cefuroxime Sodium 750 mg/Ketorolac Tromethamine 30 mg/Sodium Chloride 27.9 ml 0 mg .XX ONETIME ONE Stop: 11/08/18 07:22 Last Admin: 11/08/18 11:04 Dose: 788.3 mg Cyclobenzaprine HCl (Flexeril) 10 mg PO TID PRN PRN Reason: Spasms Last Admin: 11/09/18 09:31 Dose: 10 mg Diphenhydramine HCl (Benadryl) 25 mg IVPUSH Q6H PRN PRN Reason: pruritis Stop: 11/08/18 20:00 Docusate Sodium (Colace) 100 mg PO BID [facility] Last Admin: 11/09/18 09:32 Dose: 100 mg Ephedrine Sulfate (Ephedrine In Ns) Confirm Administered Dose 25 mg .ROUTE .STK- MED ONE Stop: 11/08/18 10:16 Epinephrine HCl (Adrenalin) Confirm Administered Dose 1 mg .ROUTE .STK-MED ONE Stop: 11/08/18 10:07 Famotidine (Pepcid) 20 mg PO Q12H [facility] Last Admin: 11/09/18 09:32 Dose: 20 mg Fentanyl (Sublimaze) Confirm Administered Dose 100 mcg .ROUTE .STK-MED ONE Stop: 11/08/18 09:07 Lactated Ringer's (Ringers, Lactated) 1,000 mls @ 125 mls/hr IV ASDIRECTED [facility] Stop: 11/08/18 23:00 Last Admin: 11/08/18 09:10 Dose: 125 mls/hr Cefazolin Sodium/Dextrose 2 gm (/ Premix) 50 mls @ 100 mls/hr IV Q8H [facility] Stop: 11/09/18 10:29 Last Admin: 11/09/18 09:33 Dose: 100 mls/hr Insulin Human Lispro (Humalog) 0 unit SUBCUT QIDACANDBED [facility]; Protocol Last Admin: 11/09/18 13:03 Dose: Not Given Iodine (Iodine 2% Mild Tincture) Confirm Administered Dose 30 ml .ROUTE .STK- MED ONE Stop: 11/08/18 08:57 Last Admin: 11/08/18 10:57 Dose: 18 ml Ketorolac Tromethamine (Toradol) 15 mg IVPUSH Q6H PRN PRN Reason: Pain Last Admin: 11/09/18 00:41 Dose: 15 mg Levothyroxine Sodium (Levothyroxine) 150 mcg PO 0600 [facility] Last Admin: 11/09/18 05:59 Dose: 150 mcg Lidocaine/Sodium Bicarbonate (Buffered Lidocaine 1% In Ns 8.4%) 0.25 ml IDERM ONETIME PRN PRN Reason: Prior to IV Start Stop: 11/08/18 18:00 Last Admin: 11/08/18 09:10 Dose: 0.25 ml Magnesium Hydroxide (Milk Of Magnesia) 30 ml PO BID PRN PRN Reason: Constipation Metformin HCl (Glucophage) 250 mg PO BID [facility] Midazolam HCl (Versed 1 Mg/Ml) Confirm Administered Dose 2 mg .ROUTE .STK-MED ONE Stop: 11/08/18 09:08 Morphine Sulfate (Morphine) 2 mg IVPUSH Q2H PRN PRN Reason: Breakthrough Pain Multivitamins (Thera) 1 each PO DAILY [facility] Last Admin: 11/09/18 09:31 Dose: 1 each Naloxone HCl (Narcan) 0.1 mg IVPUSH Q5M PRN PRN Reason: Oversedation Ondansetron HCl (Zofran) 4 mg IVPUSH Q6H PRN PRN Reason: Nausea/Vomiting Ondansetron HCl (Zofran) Confirm Administered Dose 4 mg .ROUTE .STK-MED ONE Stop: 11/08/18 09:07 Ondansetron HCl (Zofran) 4 mg IVPUSH ONETIME PRN PRN Reason: Nausea/Vomiting Stop: 11/08/18 20:00 Oxycodone HCl (Oxycontin) 10 mg PO ONETIME [facility] Stop: 11/08/18 15:00 Last Admin: 11/08/18 08:51 Dose: 10 mg Oxycodone/Acetaminophen (Percocet 325-5 Mg) 1 - 2 tab PO Q4H PRN PRN Reason: Pain Last Admin: 11/09/18 11:22 Dose: 2 tab Pregabalin (Lyrica) 50 mg PO ONETIME [facility] Stop: 11/08/18 15:00 Last Admin: 11/08/18 08:51 Dose: 50 mg Propofol (Diprivan 20 Ml) Confirm Administered Dose 200 mg .ROUTE .STK-MED ONE Stop: 11/08/18 09:07 Propofol (Diprivan 20 Ml) Confirm Administered Dose 200 mg .ROUTE .STK-MED ONE Stop: 11/08/18 10:23 Propofol (Diprivan 20 Ml) Confirm Administered Dose 200 mg .ROUTE .STK-MED ONE Stop: 11/08/18 11:04 Ropivacaine (Naropin 0.5%) Confirm Administered Dose 30 ml .ROUTE .STK-MED ONE Stop: 11/08/18 10:07 Senna (Senna) 8.6 mg PO BID PRN PRN Reason: Constipation Simvastatin (Zocor) 40 mg PO DAILY [facility] Sodium Chloride (Saline Flush) 10 ml FLUSH ASDIRECTED PRN PRN Reason: Keep Vein Open Stop: 11/08/18 18:00 Tranexamic Acid (Cyklokapron) Confirm Administered Dose 1,000 mg .ROUTE .STK- MED ONE Stop: 11/08/18 08:57 Last Admin: 11/08/18 11:12 Dose: 1,000 mg Triamcinolone Acetonide (Kenalog-40) Confirm Administered Dose 80 mg .ROUTE .STK -MED ONE Stop: 11/08/18 08:57 Last Admin: 11/08/18 11:20 Dose: 80 mg Vancomycin HCl (Vancomycin) Confirm Administered Dose 1 gm .ROUTE .STK-MED ONE Stop: 11/08/18 08:57 Last Admin: 11/08/18 11:06 Dose: 1 gm - Exam Quality Assessment: No: Supplemental Oxygen General: Alert, Oriented HEENT: Pupils Equal Neck: Supple Lungs: Clear to Auscultation, Normal Respiratory Effort Cardiovascular: Regular Rate, Regular Rhythm GI/Abdominal Exam: Normal Bowel Sounds, Soft, Non-Tender, No Organomegaly, No Distention Extremities: Normal Inspection, Normal Range of Motion, Non-Tender, No Pedal Edema Skin: Warm, Dry, Intact Wound/Incisions: Healing Well Neurological: No New Focal Deficit Psy/Mental Status: Alert, Normal Affect, Normal Mood Consult PN Assessment/Plan POD#: 1 Problem List Initiated/Reviewed/Updated: Yes Plan: Acute: S/P left total knee arthroplasty - post-operative day 1 -DVT prophylaxis and pain management per primary care team -PT/OT -IS/RT -Monitor oxygen saturation -Titrate oxygen as needed -Home medications reviewed -Vital signs stable -Monitor labs -Pre-operative Hgb was 13.8 -Pre-operative GFR was 88 -Postop day 1 hemoglobin 11.8, BUN 18, creatinine 1.0 Osteoarthritis of bilateral knees -Pain management per primary care team S/P right knee cortisone injection -Management by primary team Chronic: Impaired vision HLD Type II DM Hypothyroidism Plan: Medically stable for discharge. She is a full code. Her PCP is Eden Fung PA-C Thank you for allowing us to participate in the care of this patient!!
--- NOTE | 2018-11-10 09:29 | PCM.DCSUM1 ---
Discharge Summary - Hospital Course Brief History: Eliz is a 57 yo female who underwent left TKA with right knee cortisone injection with Dr. Lincoln on 11-08-2018. The procedure was completed under spinal anesthesia with MAC. The pt tolerated the procedure well and was admitted to the Medical-Surgical Unit. The pt received Ancef coy-operatively. She participated in P.T. and O.T. and progressed well. She was allowed to WBAT and used a FWW for mobility. The pt's surgical wound was dressed with a Mepilex dressing and remained clean and dry. On POD#1, the pt was started on 325mg ASA BID for VTE prophylaxis. The pt used TEDs and SCDs also. On POD#1, the pt's hemoglobin was 11.0. Medical management was provided by the Hospitalist service and the pt's hospital course was uneventful. On POD#1, the pt was deemed appropriate for discharge to home with family. - Discharge Data Discharge Date: 11/09/18 Discharge Disposition: Home, Self-Care 01 Condition: Good - Patient Summary/Data Operative Procedure(s) Performed: left total knee with right knee corticosteroid injection Consults: Consultations 11/08/18 07:21 OT Evaluation and Treatment [CONS] Routine PT Evaluation and Treatment [CONS] Routine 11/08/18 07:22 Consult to Physician [CONS] Routine - Patient Instructions Diet: Usual Diet as Tolerated Activity: Apply Ice, As Tolerated, Elevate Extremity, Full Weight Bearing Driving: Do Not Drive Showering/Bathing: May Shower Wound/Incision Care: Keep Operative Site/Wound Site Clean and Dry, Do NOT Change Dressing Notify Provider of: Fever, Increased Pain, Swelling and Redness, Drainage, Nausea and/or Vomiting Other/Special Instructions: Please get up and moving around EVERY HOUR while awake. This helps to prevent blood clots. Please use your walker and have help with mobility as needed. Take a short walk in your home every hour while awake. Please take 325mg Aspirin TWICE daily. The aspirin is being used for blood clot prevention and not for pain management so please do not miss a dose of the medication. You could use a medication like Zantac or Pepcid and a medication like Prilosec or Nexium to protect your stomach while you are using the aspirin. At home, please complete the exercises that you learned during the Hospital stay. Schedule for physical therapy. Use the pain medication as needed. The medication may cause drowsiness and constipation. Contact your primary care provider for instructions if you are constipated. You may use a stool softener like docusate sodium or Colace 100mg twice daily and/or a laxative like Miralax daily for constipation. Increase your water and fiber intake while you are using the pain medication. Discontinue use of the pain medication as soon as able. Please do not use other medications that may cause drowsiness (other pain medications, anxiety pills, cold medications, sleeping pills, etc) while using the prescription pain medication. Do not use alcohol while using the pain medication. You may use acetaminophen or Tylenol for pain management, however, please ensure you are not using over 4000 mg or 4 grams of acetaminophen per day from all sources. Your pain medication has 325mg of acetaminophen per tablet. At this time, please do not use ibuprofen (Motrin, Advil) or naproxen (Aleve) for pain management as you are using the aspirin. When the aspirin course is completed in 4 to 6 weeks, you could use ibuprofen or naproxen for pain management (if this is allowed by your primary care provider). Wear the JERRY hose during the day and you may remove these at night. Elevate the limb to decrease swelling. Place ice to the area often. Place a towel between your skin and the blue pad. Use the incentive spirometer often. Take deep breaths throughout the day. Please keep the dressing in place until follow-up. Notify the Clinic if the dressing becomes saturated. Increase your protein intake while you are healing. If you have diabetes, please closely monitor your blood sugars and notify your primary care provider with abnormal values. Elevated blood sugars increases the risk of infection. Call the Clinic with questions or concerns - [phone]. - Discharge Plan *PRESCRIPTION DRUG MONITORING PROGRAM REVIEWED*: No *COPY OF PRESCRIPTION DRUG MONITORING REPORT IN PATIENT ABIMBOLA: No Prescriptions/Med Rec: Acetaminophen/oxyCODONE [Percocet 325-5 MG] 1 - 2 tab PO Q4H PRN #60 tablet PRN Reason: Pain Aspirin [Ecotrin EC] 325 mg PO BID #84 tab.ec Cyclobenzaprine [Flexeril] 10 mg PO BID PRN #30 tablet PRN Reason: Spasms Home Medications: Home Meds Cholecalciferol (Vitamin D3) [Vitamin D3] 5,000 unit PO DAILY 11/05/18 [History] Levothyroxine 150 mcg PO DAILY 11/05/18 [History] Multivitamin [Daily Multiple Vitamin] 1 tab PO DAILY 11/05/18 [History] Simvastatin [Zocor] 40 mg PO DAILY 11/05/18 [History] metFORMIN HCl [Metformin HCl ER] 500 mg PO DAILY 11/05/18 [History] Acetaminophen/oxyCODONE [Percocet 325-5 MG] 1 - 2 tab PO Q4H PRN #60 tablet [Rx] Aspirin [Ecotrin EC] 325 mg PO BID #84 tab.ec 11/09/18 [Rx] Bisacodyl [Dulcolax] 5 mg PO DAILY PRN tablet 11/09/18 [Rx] Cyclobenzaprine [Flexeril] 10 mg PO BID PRN #30 tablet 11/09/18 [Rx] Docusate Sodium [Colace] 100 mg PO BID cap 11/09/18 [Rx] Famotidine [Pepcid] 20 mg PO Q12H tablet 11/09/18 [Rx] Magnesium Hydroxide [Milk of Magnesia] 30 ml PO BID PRN cup 11/09/18 [Rx] Sennosides [Senna] 8.6 mg PO BID PRN tablet 11/09/18 [Rx] Patient Handouts: Total Knee Replacement, Care After, [id number] Referrals: Tiffanie Tatum PA-C [Physician [facility]] - 11/16/18 11:15 am (your follow up appointments are with Tiffanie on 11/16/18 at 11:15 am and 11/23/17 at 11:15 am. ) - Discharge Summary/Plan Comment DC Time >30 min.: No - Patient Data Vitals - Most Recent: Last Vital Signs Temp 99.0 F 11/09/18 11:20 Pulse 87 11/09/18 11:20 Resp 16 11/09/18 11:20 BP 121/84 11/09/18 11:20 Pulse Ox 94 L 11/09/18 11:20 Weight - Most Recent: 186 lb Lab Results - Last 24 hrs: Laboratory Results - last 24 hr 11/09/18 Range/Units 11:27 POC Glucose 107 H (70-105) mg/dL Med Orders - Current: Current Medications Discontinued Medications Acetaminophen (Tylenol) 975 mg PO ONETIME [facility] Stop: 11/08/18 15:00 Last Admin: 11/08/18 08:52 Dose: 975 mg Aspirin (Ecotrin) 325 mg PO BID [facility] Last Admin: 11/09/18 09:32 Dose: 325 mg Bisacodyl (Dulcolax) 5 mg PO DAILY PRN PRN Reason: Constipation Bupivacaine HCl (Sensorcaine-Mpf 0.25%) Confirm Administered Dose 10 ml .ROUTE .STK-MED ONE Stop: 11/08/18 08:57 Last Admin: 11/08/18 11:20 Dose: 4 ml Bupivacaine HCl (Marcaine 0.25%) Confirm Administered Dose 30 ml .ROUTE .STK- MED ONE Stop: 11/08/18 08:57 Last Admin: 11/08/18 11:05 Dose: 30 ml Cefazolin Sodium (Ancef) Confirm Administered Dose 2 gm .ROUTE .STK-MED ONE Stop: 11/08/18 08:57 Cefazolin Sodium (Ancef) Confirm Administered Dose 2 gm .ROUTE .STK-MED ONE Stop: 11/08/18 09:08 Last Admin: 11/08/18 10:59 Dose: 2 gm Cholecalciferol (Vitamin D3) 5,000 unit PO DAILY [facility] Last Admin: 11/09/18 09:33 Dose: 5,000 unit Morphine Sulfate 8 mg/Epinephrine HCl 0.3 mg/Cefuroxime Sodium 750 mg/Ketorolac Tromethamine 30 mg/Sodium Chloride 27.9 ml 0 mg .XX ONETIME ONE Stop: 11/08/18 07:22 Last Admin: 11/08/18 11:04 Dose: 788.3 mg Cyclobenzaprine HCl (Flexeril) 10 mg PO TID PRN PRN Reason: Spasms Last Admin: 11/09/18 09:31 Dose: 10 mg Diphenhydramine HCl (Benadryl) 25 mg IVPUSH Q6H PRN PRN Reason: pruritis Stop: 11/08/18 20:00 Docusate Sodium (Colace) 100 mg PO BID [facility] Last Admin: 11/09/18 09:32 Dose: 100 mg Ephedrine Sulfate (Ephedrine In Ns) Confirm Administered Dose 25 mg .ROUTE .STK- MED ONE Stop: 11/08/18 10:16 Epinephrine HCl (Adrenalin) Confirm Administered Dose 1 mg .ROUTE .STK-MED ONE Stop: 11/08/18 10:07 Famotidine (Pepcid) 20 mg PO Q12H [facility] Last Admin: 11/09/18 09:32 Dose: 20 mg Fentanyl (Sublimaze) Confirm Administered Dose 100 mcg .ROUTE .STK-MED ONE Stop: 11/08/18 09:07 Lactated Ringer's (Ringers, Lactated) 1,000 mls @ 125 mls/hr IV ASDIRECTED [facility] Stop: 11/08/18 23:00 Last Admin: 11/08/18 09:10 Dose: 125 mls/hr Cefazolin Sodium/Dextrose 2 gm (/ Premix) 50 mls @ 100 mls/hr IV Q8H [facility] Stop: 11/09/18 10:29 Last Admin: 11/09/18 09:33 Dose: 100 mls/hr Insulin Human Lispro (Humalog) 0 unit SUBCUT QIDACANDBED [facility]; Protocol Last Admin: 11/09/18 13:03 Dose: Not Given Iodine (Iodine 2% Mild Tincture) Confirm Administered Dose 30 ml .ROUTE .STK- MED ONE Stop: 11/08/18 08:57 Last Admin: 11/08/18 10:57 Dose: 18 ml Ketorolac Tromethamine (Toradol) 15 mg IVPUSH Q6H PRN PRN Reason: Pain Last Admin: 11/09/18 00:41 Dose: 15 mg Levothyroxine Sodium (Levothyroxine) 150 mcg PO 0600 [facility] Last Admin: 11/09/18 05:59 Dose: 150 mcg Lidocaine/Sodium Bicarbonate (Buffered Lidocaine 1% In Ns 8.4%) 0.25 ml IDERM ONETIME PRN PRN Reason: Prior to IV Start Stop: 11/08/18 18:00 Last Admin: 11/08/18 09:10 Dose: 0.25 ml Magnesium Hydroxide (Milk Of Magnesia) 30 ml PO BID PRN PRN Reason: Constipation Metformin HCl (Glucophage) 250 mg PO BID [facility] Midazolam HCl (Versed 1 Mg/Ml) Confirm Administered Dose 2 mg .ROUTE .STK-MED ONE Stop: 11/08/18 09:08 Morphine Sulfate (Morphine) 2 mg IVPUSH Q2H PRN PRN Reason: Breakthrough Pain Multivitamins (Thera) 1 each PO DAILY [facility] Last Admin: 11/09/18 09:31 Dose: 1 each Naloxone HCl (Narcan) 0.1 mg IVPUSH Q5M PRN PRN Reason: Oversedation Ondansetron HCl (Zofran) 4 mg IVPUSH Q6H PRN PRN Reason: Nausea/Vomiting Ondansetron HCl (Zofran) Confirm Administered Dose 4 mg .ROUTE .STK-MED ONE Stop: 11/08/18 09:07 Ondansetron HCl (Zofran) 4 mg IVPUSH ONETIME PRN PRN Reason: Nausea/Vomiting Stop: 11/08/18 20:00 Oxycodone HCl (Oxycontin) 10 mg PO ONETIME [facility] Stop: 11/08/18 15:00 Last Admin: 11/08/18 08:51 Dose: 10 mg Oxycodone/Acetaminophen (Percocet 325-5 Mg) 1 - 2 tab PO Q4H PRN PRN Reason: Pain Last Admin: 11/09/18 11:22 Dose: 2 tab Pregabalin (Lyrica) 50 mg PO ONETIME [facility] Stop: 11/08/18 15:00 Last Admin: 11/08/18 08:51 Dose: 50 mg Propofol (Diprivan 20 Ml) Confirm Administered Dose 200 mg .ROUTE .STK-MED ONE Stop: 11/08/18 09:07 Propofol (Diprivan 20 Ml) Confirm Administered Dose 200 mg .ROUTE .STK-MED ONE Stop: 11/08/18 10:23 Propofol (Diprivan 20 Ml) Confirm Administered Dose 200 mg .ROUTE .STK-MED ONE Stop: 11/08/18 11:04 Ropivacaine (Naropin 0.5%) Confirm Administered Dose 30 ml .ROUTE .STK-MED ONE Stop: 11/08/18 10:07 Senna (Senna) 8.6 mg PO BID PRN PRN Reason: Constipation Simvastatin (Zocor) 40 mg PO DAILY [facility] Sodium Chloride (Saline Flush) 10 ml FLUSH ASDIRECTED PRN PRN Reason: Keep Vein Open Stop: 11/08/18 18:00 Tranexamic Acid (Cyklokapron) Confirm Administered Dose 1,000 mg .ROUTE .STK- MED ONE Stop: 11/08/18 08:57 Last Admin: 11/08/18 11:12 Dose: 1,000 mg Triamcinolone Acetonide (Kenalog-40) Confirm Administered Dose 80 mg .ROUTE .STK -MED ONE Stop: 11/08/18 08:57 Last Admin: 11/08/18 11:20 Dose: 80 mg Vancomycin HCl (Vancomycin) Confirm Administered Dose 1 gm .ROUTE .STK-MED ONE Stop: 11/08/18 08:57 Last Admin: 11/08/18 11:06 Dose: 1 gm
--- NOTE | 2018-11-12 10:24 | OR ---
DATE OF OPERATION: 11/08/2018 SURGEON: Salas Lincoln MD OPERATION PERFORMED: Left total knee arthroplasty with right knee corticosteroid injection. PREOPERATIVE DIAGNOSIS: Bilateral knee osteoarthrosis. POSTOPERATIVE DIAGNOSIS: Bilateral knee osteoarthrosis. ANESTHESIA: Local MAC with spinal. ANESTHESIA PROVIDER: Amina Turpin CRNA ASSISTANTS: Tiffanie Tatum PA-C and Cesia Nicolas LPN. ESTIMATED BLOOD LOSS: 250 mL. COMPLICATIONS: None. CONDITION: Stable. IMPLANTS: 1. Tumtum size 4 press-fit CR femur. 2. Tumtum size 4 press-fit tibial baseplate. 3. Tumtum size 4, 9 mm CS polyethylene insert. 4. Marlene size 32 x 10 mm press-fit asymmetric patella. DESCRIPTION OF PROCEDURE: The patient was identified in the preop holding area. Proper site was marked and identified by the surgeon. The patient was taken back to the operating theater. After adequate anesthesia, the patient's left lower extremity had a nonsterile tourniquet applied and it was sterilely prepped and draped in the usual sterile fashion. OR time-out was performed. The patient received 2 g IV Ancef. At this time, the left lower extremity was exsanguinated. Tourniquet was insufflated to 300 mmHg. Standard medial parapatellar incision was made. Medial parapatellar arthrotomy was created. Deep fibers of the MCL were raised and anterior fat pad was resected. At this time, attention was turned to the patella. Patella measured a 23, it was resected to a 13 for a 32 x 10 mm patella. Drill holes were then drilled and found to be in adequate position. The drill was then drilled in the distal femur and the intramedullary distal femoral cutting guide was then placed. An 8 mm was resected off the distal femur and was found to be an adequate resection. Sizing guide was placed. It was found to be a size 4 press-fit CR femur that was shown on the implant record at the beginning of this dictation. The drill holes were drilled for the epicondylar axis using Whitesides line and epicondyles as reference. At this time, the 4-in-1 cutting block was placed. An anterior posterior and anterior and posterior chamfer cuts were then completed. Attention was turned to the tibia. The posterior medial lateral retractors were placed. The extramedullary tibial guide was placed. It was placed in the old footprint of the ACL. It was aligned with the center of the ankle and 0 degrees of slope, 9 mm was then resected off the unaffected side. There was found to be an acceptable reduction. At this time, posterior osteophytes were removed along with medial and lateral meniscus. A trial implant was placed with a correct sized tibia that was mentioned at the beginning of the dictation. A Tumtum size 4, 9 mm CS polyethylene insert was then placed. The patient's knee was brought through range of motion. The patella was tracking centrally and was stable to varus and valgus stress. Alignment was found to be roughly at 0 degrees. The tibia was stamped and drilled in proper rotation. The universal tibial base plate was impacted in place. Next, the Tumtum size 4 press-fit CR femur impacted into place and the Marlene size 4, 9 mm CS polyethylene insert was placed. The patient's knee was brought into full extension. The patella was then press-fit in place at this time. Tourniquet was deflated. One liter dilute Betadine solution was irrigated through the knee along with 3 L of pulse lavage irrigation with Ancef. Periarticular injection was then completed. The patient's knee was brought through a range of motion. Knee was found to be stable to varus valgus stress, the patella was tracking centrally with full range of motion. At this time, a #2 barbed suture was used for closure of the medial parapatellar arthrotomy. Topical tranexamic acid was placed. 2-0 Vicryl was used subcutaneously, Prineo was used for the skin. The patient tolerated the procedure well and was sent to the PACU in stable condition. After this was completed, under sterile technique, 2 mL of 40 mg Kenalog and 4 mL of 0.25% Marcaine were injected into the patient's right knee. The patient tolerated it well and will follow up in clinic in a week. CANDICE /[id number] JOSY
== END 2018-11-09 12:54 | disposition home or self-care (01) | DRG 302 ==
LOC: JD.SDS 08:35 → JD.MS 12:46
PROVIDERS: ADMIT Orthopaedic Surgery; ATTEND Orthopaedic Surgery
PROC: 0SRD0JA Replacement of Left Knee Joint with Synthetic Substitute, Uncemented, Open Approach (ICD-10-PCS; principal; 2018-11-08)
PROC: 3E0U33Z Introduction of Anti-inflammatory into Joints, Percutaneous Approach (ICD-10-PCS; 2018-11-08)
DX: M17.0 Bilateral primary osteoarthritis of knee (principal); E11.9 Type 2 diabetes mellitus without complications; E78.5 Hyperlipidemia, unspecified; E03.9 Hypothyroidism, unspecified; H54.7 Unspecified visual loss; Z90.49 Acquired absence of other specified parts of digestive tract; Z79.82 Long term (current) use of aspirin; Z79.899 Other long term (current) drug therapy; Z79.84 Long term (current) use of oral hypoglycemic drugs; Z87.891 Personal history of nicotine dependence
CPT/HCPCS: 01402; 36415; 64450; 73560-26-LT; 73560-LT; 80053; 82962; 85027; 97110-GP; 97116-GP; 97161-GP; 97165-GO; 97535-GO; A9270-GY; C1776; J0171; J0690; J0697; J1885; J2250; J2270; J2405; J2704; J2795; J3010; J3301; J3370; J3490; J7050; J7120

== ENCOUNTER 2020-11-22 06:38 | Day surgery (SDC) | payer BC ==
[~2020-11-22 06:38] MED LIST changes: -Bisacodyl 5 MG Tab PO PRN; +Lidocaine 1% 0 ML ONE; +Midazolam 1 MG/ML 2 ML SDV ONE; -Morphine 2 MG/ML Syringe IVPUSH PRN; +Morphine 8 MG, EPINEPHrine 0.3 MG, Cefuroxime 750 MG, Ketorolac 30 MG, Sodium Chloride ... PRN; -Naloxone 0.4 MG/ML SDV IVPUSH PRN; -Ondansetron 4 MG/2 ML SDV IVPUSH PRN; +Propofol 200 MG/20 ML SDV ONE; +Rocuronium 50 MG/5 ML Vial ONE; +fentaNYL 250 MCG/5 ML SDV ONE
[2020-11-22] MEDS ORDERED: EPINEPHrine 1 MG/ML SDV ONE (07:08)
[2020-11-22] MEDS ORDERED: Ropivacaine 0.5% 5 MG/ML 30 ML SDV ONE (07:08)
--- NOTE | 2020-11-22 07:21 | PCM.PREANE ---
Preanesthetic Assessment - Procedure Proposed Procedure: [facility] total knee arthroplasty - Anesthesia/Transfusion/Family Hx Anesthesia History: Prior Anesthesia Without Reaction Family History of Anesthesia Reaction: No Transfusion History: No Prior Transfusion(s) - Review of Systems General: No Symptoms Pulmonary: Other (has sniffles- probably allergies) Cardiovascular: No Symptoms Gastrointestinal: No Symptoms Neurological: No Symptoms Other: Reports: Diabetes, Thyroid Problems, Sinus Problem - Physical Assessment NPO Status Date: 11/21/20 NPO Status Time: 23:00 Vital Signs: 138/93 81 100% 18 96.8 Height: 5 ft 2 in Weight: 80 kg ASA Class: 2 Mental Status: Alert & Oriented x3 Airway Class: Mallampati = 2 Dentition: Reports: Partial (top) Thyro-Mental Finger Breadths: 3 Mouth Opening Finger Breadths: 3 ROM/Head Extension: Full Lungs: Clear to Auscultation, Normal Respiratory Effort Cardiovascular: Regular Rate, Regular Rhythm - Lab Values: Laboratory Last Values POC Glucose 115 mg/dL (70-99) H 11/22/20 06:56 - Allergies Allergies/Adverse Reactions: Allergies Allergy/AdvReac Type Severity Reaction Status Date / Time No Known Allergies Allergy Verified 11/21/20 13:15 - Blood Blood Available: No - Acknowledgements Anesthesia Type Planned: Spinal Pt an Appropriate Candidate for the Planned Anesthesia: Yes Alternatives and Risks of Anesthesia Discussed w Pt/Guardian: Yes Pt/Guardian Understands and Agrees with Anesthesia Plan: Yes PreAnesthesia Questionnaire HEENT History: Reports: Impaired Vision, Other (See Below) Other HEENT History: wears glasses, has partial Cardiovascular History: Reports: High Cholesterol Respiratory History: Reports: None Gastrointestinal History: Reports: None Genitourinary History: Reports: None RESEARCH FELLOW History: Reports: None Musculoskeletal History: Reports: Osteoarthritis Neurological History: Reports: None Psychiatric History: Reports: None Endocrine/Metabolic History: Reports: Diabetes, Type II, Hypothyroidism, Obesity/BMI 30+ Hematologic History: Reports: None Immunologic History: Reports: None Oncologic (Cancer) History: Reports: None Dermatologic History: Reports: Eczema - Infectious Disease History Infectious Disease History: Reports: None - Past Surgical History Head Surgeries/Procedures: Reports: None Cardiovascular Surgical History: Reports: None Respiratory Surgical History: Reports: None GI Surgical History: Reports: Cholecystectomy Female Surgical History: Reports: None Male Surgical History: Reports: None Endocrine Surgical History: Reports: None Neurological Surgical History: Reports: None Musculoskeletal Surgical History: Reports: Knee Replacement, Shoulder Surgery, Other (See Below) Other Musculoskeletal Surgeries/Procedures:: knee arthroscopy, decompression of medial nerve Oncologic Surgical History: Reports: None Dermatological Surgical History: Reports: None - SUBSTANCE USE Tobacco Use Status *Q: Former Tobacco User Tobacco Use Within Last Twelve Months: Cigarettes Second Hand Smoke Exposure: No Days Per Week of Alcohol Use: 1 Recreational Drug Use History: No - HOME MEDS Home Medications: Home Meds Cholecalciferol (Vitamin D3) [Vitamin D3] 5,000 unit PO DAILY 11/05/18 [History] Multivitamin [Daily Multiple Vitamin] 1 tab PO DAILY 11/05/18 [History] Simvastatin [Zocor] 40 mg PO DAILY 11/05/18 [History] metFORMIN HCl [Metformin HCl ER] 500 mg PO DAILY 11/05/18 [History] Aspirin [Aspirin EC] 325 mg PO BID #84 tab 11/21/20 [Rx] Calcium Carbonate/Vitamin D3 [Calcium 600-Vit D3 400 Tablet] 1 tab PO DAILY 11/21/20 [History] Cyclobenzaprine [Flexeril] 10 mg PO BID PRN #20 tab 11/21/20 [Rx] Fish Oil/Borage/Flax/Om3,6,9 1 [[place] 3-6-9 1,200 mg Softgel] 1,200 mg PO DAILY 11/21/20 [History] Levothyroxine Sodium [Levothyroxine] 137 mcg PO DAILY 11/21/20 [History] oxyCODONE 5 - 10 mg PO Q4H PRN #40 tab 11/21/20 [Rx] - CURRENT (IN HOUSE) MEDS Current Meds: Current Medications Acetaminophen (Acetaminophen 325 Mg Tab) 975 mg PO ONETIME [facility] Stop: 11/22/20 16:00 Morphine Sulfate 8 mg/Epinephrine HCl 0.3 mg/Cefuroxime Sodium 750 mg/Ketorolac Tromethamine 30 mg/Sodium Chloride 7.9 ml 0 mg .XX ASDIRECTED PRN PRN Reason: Pain Stop: 11/22/20 18:00 Lactated Ringer's (Ringers, Lactated) 1,000 mls @ 125 mls/hr IV ASDIRECTED [facility] Stop: 11/22/20 23:00 Lidocaine/Sodium Bicarbonate (Lidocaine 1%/Sod Bicarbonate In Ns 8.4% 1 Ml Syringe) 0.25 ml IDERM ONETIME PRN PRN Reason: Prior to IV Start Stop: 11/22/20 18:00 Oxycodone HCl (Oxycodone Er 10 Mg Tab.Er) 10 mg PO ONETIME [facility] Stop: 11/22/20 16:00 Pregabalin (Pregabalin 25 Mg Cap) 50 mg PO ONETIME [facility] Stop: 11/22/20 16:00 Sodium Chloride (Sodium Chloride 0.9% 10 Ml Syringe) 10 ml FLUSH ASDIRECTED PRN PRN Reason: Keep Vein Open Stop: 11/22/20 18:00 Discontinued Medications Epinephrine HCl (Epinephrine 1 Mg/Ml Sdv) Confirm Administered Dose 1 mg .ROUTE .STK-MED ONE Stop: 11/22/20 07:09 Fentanyl (Fentanyl 250 Mcg/5 Ml Sdv) Confirm Administered Dose 250 mcg .ROUTE .STK-MED ONE Stop: 11/21/20 09:36 Lidocaine HCl (Xylocaine-Mpf 1%) Confirm Administered Dose 4 mls @ as directed .ROUTE .STK-MED ONE Stop: 11/21/20 09:37 Midazolam HCl (Midazolam 1 Mg/Ml 2 Ml Sdv) Confirm Administered Dose 2 mg .ROUTE .STK-MED ONE Stop: 11/21/20 09:36 Propofol (Propofol 200 Mg/20 Ml Sdv) Confirm Administered Dose 200 mg .ROUTE .STK-MED ONE Stop: 11/21/20 09:36 Rocuronium Monon (Rocuronium 50 Mg/5 Ml Vial) Confirm Administered Dose 50 mg .ROUTE .STK-MED ONE Stop: 11/21/20 09:39 Ropivacaine (Ropivacaine 0.5% 5 Mg/Ml 30 Ml Sdv) Confirm Administered Dose 30 ml .ROUTE .STK-MED ONE Stop: 11/22/20 07:09
[2020-11-22] MEDS ORDERED: Vancomycin 1 GM SDV ONE (07:22)
[2020-11-22] MEDS ORDERED: Lidocaine 1% 0 ML ONE (07:32)
[2020-11-22] MEDS ORDERED: fentaNYL 100 MCG/2 ML SDV ONE (07:33)
[2020-11-22] MEDS ORDERED: Propofol 200 MG/20 ML SDV ONE (07:33)
[2020-11-22] MEDS ORDERED: Midazolam 1 MG/ML 2 ML SDV ONE (07:33)
[2020-11-22] MEDS ORDERED: ceFAZolin 1 GM Vial ONE (07:36)
[2020-11-22] MEDS ORDERED: Lidocaine 1% 4 ML ONE (07:36)
[2020-11-22] MEDS ORDERED: Lactated Ringers 1,000 ML ONE ×2 (08:26→09:59)
[2020-11-22] MEDS ORDERED: ePHEDrine 50 MG/ML SDV ONE (08:40)
[2020-11-22] MEDS ORDERED: HYDROmorphone 0.5 MG/0.5 ML Syringe IVPUSH PRN (08:47)
[2020-11-22] MEDS ORDERED: fentaNYL 100 MCG/2 ML SDV IVPUSH PRN (08:47)
[2020-11-22] MEDS ORDERED: Ondansetron 4 MG/2 ML SDV IVPUSH PRN (08:47)
[2020-11-22] MEDS ORDERED: Ketorolac 30 MG/ML SDV ONE (10:01)
--- NOTE | 2020-11-22 10:23 | PCM.POSTAN ---
POST ANESTHESIA ASSESSMENT - MENTAL STATUS Mental Status: Alert, Oriented - VITAL SIGNS Vital Signs: Last Vital Signs Temp 97.3 F 11/22/20 10:17 Pulse 93 11/22/20 1017 Resp 12 11/22/20 10:17 BP 135/81 11/22/20 10:17 Pulse Ox 94 L 11/22/20 10:17 - RESPIRATORY Respiratory Status: Respiratory Rate WNL, Airway Patent, O2 Saturation Stable, Supplemental Oxygen - CARDIOVASCULAR CV Status: Pulse Rate WNL, Blood Pressure Stable - GASTROINTESTINAL GI Status: No Symptoms - PAIN Pain Score: 0 - POST OP HYDRATION Hydration Status: Adequate & Stable
--- NOTE | 2020-11-22 10:46 | PCM.SN.2 ---
- Free Text/Narrative Note: Right selective femoral nerve block at the adductor canal for post-procedure pain control under US guidance requested by Dr. Lincoln. Date: 11/22/20 Time Out: 1030 Start: 1031 End: 1036 Chart reviewed. Consent signed. Questions answered. Appropriate monitors applied. Time out performed. Right mid-shaft femur identified with ultrasound, scanning medially of femur, the femoral artery in the adductor canal visualized, and the femoral nerve located laterally to the artery. The skin was prepped lateral to the ultrasound probe with chlorahexadine times two. The 21ga 4 insulated block needle was inserted under direct ultrasound guidance into the adductor canal. 25mL of 0.5% ropivacaine with 1:200,000 epinephrine was injected circumferentially around the nerve with intermittent negative aspiration noted. Patient tolerated the procedure well. Sterile technique noted along with sterile gloves, mask, and sterile probe cover. See picture on progress note and vital signs on nurses notes. Block completed in PACU. Bharathi Campoverde CRNA
--- NOTE | 2020-11-22 12:16 | CR ---
Right knee: AP and crosstable lateral views of the right knee were obtained. Comparison: Previous right knee CT study of 11/08/20. Knee prosthesis is seen. Patellar prosthesis is also noted. Components are aligned. Soft tissue air is seen. Underlying bony structures show nothing acute. Impression: 1. Satisfactory post-op radiographic appearance of recently placed right knee prostheses. Diagnostic code #2
--- NOTE | 2020-11-22 12:21 | PCM48HPAN ---
Post Anesthesia Note - EVALUATION WITHIN 48HRS OF ANESTHETIC Vital Signs in Normal Range: Yes Patient Participated in Evaluation: Yes Respiratory Function Stable: Yes Airway Patent: Yes Cardiovascular Function Stable: Yes Hydration Status Stable: Yes Pain Control Satisfactory: Yes Nausea and Vomiting Control Satisfactory: Yes (just ate. no complaints) Mental Status Recovered: Yes Vital Signs: Last Vital Signs Temp 97.1 F 11/22/20 11:00 Pulse 78 11/22/20 11:40 Resp 18 11/22/20 11:40 BP 128/72 11/22/20 11:40 Pulse Ox 98 11/22/20 11:40
--- NOTE | 2020-12-04 07:15 | PCM.OPNOTE ---
- General Post-Op/Procedure Note Date of Surgery/Procedure: 11/22/20 Operative Procedure(s): right total knee arthroplasty with mireille an[employer] robotics Pre Op Diagnosis: right knee osteoarthrosis Post-Op Diagnosis: Same Anesthesia Technique: Local, MAC, Spinal Primary Surgeon: Salas Lincoln Anesthesia Provider: Bharathi Campoverde Traffic Chief: Tiffanie Tatum Traffic Chief: Cesia Nicolas EBL in mLs: 150 Complications: None Condition: Good Free Text/Narrative:: / 9mm 32x10
--- NOTE | 2020-12-04 08:02 | OR ---
DATE OF OPERATION: 11/22/2020 SURGEON: Salas Lincoln MD OPERATION PERFORMED: Right total knee arthroplasty with [employer] robot[employer]. PREOPERATIVE DIAGNOSIS: Right knee osteoarthrosis. POSTOPERATIVE DIAGNOSIS: Right knee osteoarthrosis. ANESTHESIA: Local MAC with spinal. ANESTHESIA PROVIDER: Bharathi Campoverde CRNA CHANGE OF ADDRESS CLERK: Tiffanie Tatum PA-C; and Cesia Nicolas LPN. ESTIMATED BLOOD LOSS: 150 mL. COMPLICATIONS: None. CONDITION: Stable. IMPLANTS: 1. Scio size 4 press-fit CR femur. 2. Scio size 4 press-fit tibial baseplate. 3. Marlene size 4 9 mm CS polyethylene insert. 4. Marlene size 32 x 10 mm press-fit asymmetric patella. DESCRIPTION OF PROCEDURE: The patient was identified in the preoperative holding area. Proper site was marked and identified by the surgeon. The patient was taken back to the operative theater, where after adequate anesthesia, the patient had a nonsterile tourniquet applied to the right lower extremity. Right lower extremity was then sterilely prepped and draped in the usual sterile fashion. OR time-out was performed. The patient received 2 g IV Ancef. Right lower extremity was exsanguinated. Tourniquet was insufflated to 250 mmHg. Standard anterior incision was made and medial parapatellar arthrotomy was created. Deep fibers of the MCL were raised and anterior fat pad was resected. Attention was turned to the patella. Patella measured 24 and was resected to a 14 for a 32 x 10 mm press-fit patella. Drill holes were then drilled and found to have adequate bone. At this time, attention was turned to the femur. Two 4.0 Schanz pins were placed intra-incisionally in the femur for the Scio Shashi robotic array. Two more were placed in the tibia 3 fingerbreadths below the tibial tubercle for the Marlene Shashi robotic array. Checkpoints were placed on the femur. Hip center of the rotation was then obtained. Medial and lateral malleoli were marked as well as the femoral and tibial checkpoint. 40 points were then obtained off both the femur and the tibia with Marlene Shashi robotic plan. The patient's knee was brought into full extension. Varus and valgus stresses were applied as well as 90 degrees of flexion. The patient then had concentric 19 mm flexion and extension gaps using the Marlene Shashi robotic plan. Straight saw blade was brought in. The tibia anterior femoral cut, anterior chamfer cut, and posterior femoral cut were then completed. Saw blade was then switched and the posterior chamfer and distal femoral cut were completed. Bony fragments were removed. Medial and lateral meniscus were then resected. Posterior osteophytes were removed. A size 4 trial base plate was then placed as well as a size 4 trial femur. 9 mm trial spacer was placed. The patient's knee was brought to full extension. She had no varus-valgus instability. Full extension and full flexion with no signs of liftoff. The patella was tracking centrally at this time. The femoral drill holes were drilled. Tibia was stamped and drilled in proper rotation. Trial implants were then removed. The size 4 press-fit tibia was then impacted into place. Size 4 press-fit femur was impacted into place. 9 mm CS polyethylene insert was impacted into place. The patient's knee was brought to full extension at 32 x 10 mm patella, was press-fit into place. Tourniquet was deflated. Bleeders were then cauterized. Periarticular injection was completed. 1 L of pulse lavage irrigation with Ancef was irrigated in the knee along with 400 mL of IrriSept irrigation. Topical tranexamic acid and vancomycin powder were applied. A #2 barbed suture was used for closure of the medial parapatellar arthrotomy. 2-0 Vicryl was used subcutaneously, and Prineo was used for skin closure. The patient tolerated the procedure well, had a sterile soft dressing applied, and sent to the PACU in stable condition. CANDICE /[id number]
== END 2020-11-22 13:51 | disposition home or self-care (01) ==
LOC: JD.SDS 06:38
PROVIDERS: ATTEND Orthopaedic Surgery
DX: M17.11 Unilateral primary osteoarthritis, right knee (principal); E11.9 Type 2 diabetes mellitus without complications; E78.5 Hyperlipidemia, unspecified; E03.9 Hypothyroidism, unspecified; E66.9 Obesity, unspecified; Z79.84 Long term (current) use of oral hypoglycemic drugs; Z90.49 Acquired absence of other specified parts of digestive tract; Z79.899 Other long term (current) drug therapy; Z79.82 Long term (current) use of aspirin; Z79.890 Hormone replacement therapy
CPT/HCPCS: 27447; 73560; 82947; 97116; 97161; A9270; C1713; C1776; J0171; J0690; J0697; J1885; J2250; J2270; J2370; J2704; J2795; J3010; J3370; J7120; 01402; 64450; 76942